=== PATIENT | female | born 1975 | race Caucasian/White ===

== ENCOUNTER 2018-03-27 21:52 | Inpatient (IN) | payer SELFPAY ==
[~2018-03-27] VITALS: Ht 172.7 cm; Wt 97.5 kg
[~2018-03-27 21:52] MED LIST: DAR100 PO; ESTRACE0.5 MG PO; IMITREX50 MG PO; SOM350 PO; TRAMADOL HCL50 MG PO; ZOLOFT100 MG PO
[2018-03-27 22:02] VITALS: Ht 172.7 cm; Wt 97.5 kg
[2018-03-27 22:32] LABS: BASOPHIL % 0.9 % (0-2); PLATELET COUNT 271 x10^3mcL (130-400)
[2018-03-27 22:47] LABS: CARBON DIOXIDE 23.9 mmol/L (21-32); CHLORIDE SERUM 105 mmol/L (98-107); CREATININE SERUM 0.9 mg/dL (0.6-1.0); GFR1 > 60 mL/min; GLUCOSE SERUM 95 mg/dL (74-106); POTASSIUM SERUM 3.2 mmol/L (3.5-5.1); SODIUM SERUM 142 mmol/L (136-145)
[2018-03-27 22:51] LABS: ALBUMIN 3.7 g/dL (3.4-5.0); ALKALINE PHOSPHATASE 108 U/L (46-116); ALT/SGPT 28 U/L (14-59); AST/SGOT 22 U/L (15-37); BILIRUBIN TOTAL 0.41 mg/dL (0.20-1.00); TOTAL PROTEIN, SERUM 7.6 g/dL (6.4-8.2)
[2018-03-28 08:20] LABS: microscopic required? NO
[2018-03-28 08:54] LABS: UA SPECIFIC GRAVITY >=1.030 (1.005-1.035); urine erythrocyte NEGATIVE (NEGATIVE)
[2018-03-28 11:03] LABS: AMPHETAMINE QUAL UR NONE DETECTED (NEG <=1000)
[2018-03-28 11:53] LABS: T3 TOTAL 1.09 ng/mL
[2018-03-28 12:18] VITALS: BP 149/92
[2018-03-28 14:32] LABS: PHOSPHOROUS 3.7 mg/dL (2.5-4.9)
[2018-03-28 14:52] LABS: CHOLESTEROL/HDL RATIO 3.6
[2018-03-28 15:03] LABS: FREE T4 0.81 ng/dL (0.76-1.46); FREE THYROXINE INDEX 2.4 ug/dL (1.4-4.5); T4(THYROXINE) 7.1 ug/dL (4.7-13.3)
== END 2018-03-28 16:55 | disposition left against medical advice (07) | DRG 917 ==
LOC: ED 21:52 → DU 03-28 10:55
PROVIDERS: Emergency Medicine; Family Medicine
DX: T40.4X2A Poisoning by other synthetic narcotics, intentional self-harm, initial encounter (principal); G92 Toxic encephalopathy; F10.121 Alcohol abuse with intoxication delirium; F32.9 Major depressive disorder, single episode, unspecified; G89.29 Other chronic pain; F41.1 Generalized anxiety disorder; F17.210 Nicotine dependence, cigarettes, uncomplicated; E87.6 Hypokalemia; E86.0 Dehydration; E02 Subclinical iodine-deficiency hypothyroidism; Z53.21 Procedure and treatment not carried out due to patient leaving prior to being seen by health care provider; Y92.89 Other specified places as the place of occurrence of the external cause; Z85.3 Personal history of malignant neoplasm of breast; Z98.891 History of uterine scar from previous surgery; Z90.710 Acquired absence of both cervix and uterus; Z85.42 Personal history of malignant neoplasm of other parts of uterus
CPT/HCPCS: 83880; 84439; G0480; J1200; J1630; J2060; J7030